=== PATIENT | male | born 1980 | race Caucasian/White ===

== ENCOUNTER → 2020-05-16 | Outpatient (CLI) | payer OTHER ==
[2013-01-11 22:06] VITALS: BP 99/63
== END ==
LOC: LAB 16:23
DX: J02.9 Acute pharyngitis, unspecified (principal); R19.7 Diarrhea, unspecified; R53.83 Other fatigue; R68.83 Chills (without fever); Z20.828 Contact with and (suspected) exposure to other viral communicable diseases

== ENCOUNTER → 2020-06-25 | Outpatient (CLI) | payer OTHER ==
[2013-01-11 22:06] VITALS: BP 99/63
== END ==
LOC: RAD 08:51
DX: S46.211A Strain of muscle, fascia and tendon of other parts of biceps, right arm, initial encounter (principal)

== ENCOUNTER → 2021-01-15 | Outpatient (CLI) | payer OTHER | LOC: LAB 12:07 | DX: Z20.822 Contact with and (suspected) exposure to COVID-19 (principal) ==

== ENCOUNTER → 2021-06-20 | Outpatient (CLI) | payer OTHER | LOC: LAB 13:56 | DX: U07.1 COVID-19 (principal) ==

== ENCOUNTER → 2021-09-29 | Outpatient (CLI) | payer OTHER | LOC: RAD 07:20 | DX: M25.561 Pain in right knee (principal) ==

== ENCOUNTER → 2024-05-24 | Outpatient (CLI) | payer BC | LOC: RAD 08:00 | DX: M47.817 Spondylosis without myelopathy or radiculopathy, lumbosacral region (principal) ==

== ENCOUNTER → 2024-05-31 | Outpatient (CLI) | payer BC | LOC: RAD 09:26 | DX: M17.11 Unilateral primary osteoarthritis, right knee (principal) ==

== ENCOUNTER → 2024-06-13 | Outpatient (CLI) | payer BC | LOC: RAD 08:47 | DX: M51.360 Other intervertebral disc degeneration, lumbar region with discogenic back pain only (principal); M47.816 Spondylosis without myelopathy or radiculopathy, lumbar region; M48.061 Spinal stenosis, lumbar region without neurogenic claudication; M51.370 Other intervertebral disc degeneration, lumbosacral region with discogenic back pain only; M47.817 Spondylosis without myelopathy or radiculopathy, lumbosacral region; M48.07 Spinal stenosis, lumbosacral region ==